=== PATIENT | male | born 1955 | race Caucasian/White ===

== ENCOUNTER 2024-09-22 14:13 | Observation (INO) | payer MEDICARE ==
[~2024-09-22] VITALS: Ht 170.2 cm; Wt 75.0 kg
[2024-09-22] VITALS (37 sets, daily range): BP systolic 117–182; BP diastolic 73–101
[2024-09-22] MEDS ORDERED: NITROGLYCERIN 0.4 MG/TAB SL ONE (14:30)
[2024-09-22] MEDS ORDERED: ASPIRIN 81 MG/TAB PO ONE (14:30)
[2024-09-22 14:41] LABS: BASO% 0.2 % (0-3); EOS% 1.7 % (0-8); HEMATOCRIT 40.6 % (39.0-50.0); HEMOGLOBIN 13.8 g/dl (14.0-18.0); IMMATURE GRANULOCYTES 0.2 % (0.0-5.0); LYMPH% 35.6 % (15-41); MEAN CELL VOLUME 86.8 fL CALC (80.0-100.0); MEAN CORPUSCULAR HGB 29.5 pG CALC (26.0-32.0); MONO% 7.7 % (2-13); NEUT# 3.48 thou/uL (1.82-7.42); NEUT% 54.6 % (42-76); RED BLOOD COUNT 4.68 mill/uL (4.70-6.10); RED CELL DISTRI WIDTH 12.1 % (11.5-15.5)
[2024-09-22 14:55] LABS: ALBUMIN 4.5 g/dL (3.2-5.0); ALKALINE PHOSPHATASE 57 u/l (38-126); ANION GAP 10 (6-22 (CALC)); BILIRUBIN, TOTAL 0.6 mg/dL (0.2-1.3); BUN 23 mg/dL (8-23); BUN/CREATININE RATIO 22 (12-20 (CALC)); CARBON DIOXIDE 30 mmol/l (22-30); CHLORIDE 104 mmol/l (95-108); CREATININE 1.1 mg/dL (0.7-1.3); ESTIMATED GFR 73 ML/MIN (>=90 (CALC)); LIPASE 158 u/l (23-300); POTASSIUM 3.9 mmol/l (3.5-5.1); SGOT/AST 33 u/l (19-48); SODIUM 140 mmol/l (137-146); TOTAL PROTEIN 7.3 g/dL (6.3-8.2)
[2024-09-22 14:58] LABS: INTERNATIONAL NORMALIZED RATIO 0.9 RATIO (0.7-1.3)
[2024-09-22 15:00] LABS: PROTHROMBIN TIME 9.6 SECONDS (9.0-12.5)
[2024-09-22 16:39] LABS: URINE BILIRUBIN - DIPSTICK Negative (NEGATIVE); URINE BLOOD DIPSTICK Negative (NEGATIVE); URINE COLOR Light yellow; URINE GLUCOSE - DIPSTICK Negative (NEGATIVE); URINE KETONE Negative (NEGATIVE); URINE LEUK ESTERASE Negative (NEGATIVE); URINE NITRITE - DIPSTICK Negative (Negative); URINE PROTEIN - DIPSTICK Negative (NEG-TRACE); URINE SPECIFIC GRAVITY 1.015; URINE UROBILINOGEN - DIPSTICK 0.2 E.U./dL (0.2)
[2024-09-22] MEDS ORDERED: Zaleplon 5 MG/CAP PO PRN ×2 (17:45→18:15)
[2024-09-22] MEDS ORDERED: MAGNESIUM HYDROXIDE 30 ML UDC PO PRN (17:45)
[2024-09-22] MEDS ORDERED: ACETAMINOPHEN 325 MG/TAB PO PRN (17:45)
[2024-09-22] MEDS ORDERED: ALLOPURINOL200 MG PO (19:06)
[2024-09-22] MEDS ORDERED: ENOXAPARIN SODIUM 40 MG/0.4 ML SYR SC SCH (21:00)
[2024-09-23 01:08] VITALS: BP 170/74
[2024-09-23 04:27] VITALS: BP 151/86
[2024-09-23 05:51] VITALS: BP 151/86; BP 181/88
[2024-09-23 06:26] LABS: CHOLESTEROL HDL RATIO 6.4 (<4.4 (CALC)); MAGNESIUM 2.1 mg/dL (1.6-2.3)
[2024-09-23 10:06] VITALS: BP 142/80
[2024-09-23] MEDS ORDERED: ATORVASTATIN CA40 MG PO (10:42)
[2024-09-23] MEDS ORDERED: COZAAR50 MG PO (10:42)
[2024-09-23] MEDS ORDERED: ASPIRIN 81 LOW81 MG PO (10:42)
[2024-09-23] MEDS ORDERED: LOSARTAN Potassium 50 MG/TAB PO SCH (11:05)
[2024-09-23 12:17] VITALS: BP 142/80
== END 2024-09-23 13:45 | disposition home or self-care (01) ==
LOC: ED 14:13 → ED-I 14:49 → ED 14:49 → ED-I 16:57 → ED 17:08 → MS2 17:09
PROVIDERS: Nurse Practitioner; ADMIT Internal Medicine; ATTEND Internal Medicine
DX: R07.89 Other chest pain (principal); I10 Essential (primary) hypertension; E78.5 Hyperlipidemia, unspecified; J45.909 Unspecified asthma, uncomplicated; Z98.890 Other specified postprocedural states
CPT/HCPCS: G0378